=== PATIENT | female | born 1985 | race Two or more races ===

== ENCOUNTER 2018-11-01 20:15 | Emergency (ER) | payer MEDICAID ==
--- NOTE | 2018-11-01 21:11 | NUR ---
PT PRESENTS TO ED WITH C/O POSTERIOR HEADACHE AND DIZZINESS PRESENT X 2 WEEKS. EDMD SAHM AT BEDSIDE. PT IS [place] SPEAKING ONLY, [employer] MALE IMPERSONATOR [id number] UTILIZED FOR ASSESSMENT AND CLINICAL SCREEN. FAMILY AT BEDSIDE.
--- NOTE | 2018-11-01 21:27 | NUR ---
ct pending beta result.
--- NOTE | 2018-11-01 21:28 | NUR ---
THIS RN DISCUSSED PT SYMPTOMS INCLUDING DIZZINESS WITH EDMD SAHM, PER EDMD, PT DOES NOT NEED EKG.
[2018-11-01 21:33] LABS: BASOPHILS # (AUTO) 0.05 x10^3/uL (0-0.1); BASOPHILS % (AUTO) 1 % (0-1); EOSINOPHILS # (AUTO) 0.12 x10^3/uL (0-0.4); EOSINOPHILS % (AUTO) 2 % (1-7); LYMPHOCYTES # (AUTO) 2.67 x10^3/uL (1-3.4); LYMPHOCYTES % (AUTO) 33 % (22-44); MD NO; MEAN CORPUSCULAR HEMOGLOBIN 30.5 pg (27.0-34.8); MEAN CORPUSCULAR HGB CONC 34.6 g/dL (32.4-35.8); MEAN CORPUSCULAR VOLUME 88.1 fL (80-100); MEAN PLATELET VOLUME 8.6 fL (7.4-10.4); MONOCYTES # (AUTO) 0.51 x10^3/uL (0.2-0.8); MONOCYTES % (AUTO) 6 % (2-9); NEUTROPHILS # (AUTO) 4.69 x10^3/uL (1.8-6.8); NEUTROPHILS % (AUTO) 58 % (42-75); PLATELET COUNT 264 x10^3/uL (130-400); RED BLOOD COUNT 4.93 x10^6/uL (3.82-5.3); RED CELL DISTRIBUTION WIDTH 12.4 % (9.6-15.2)
[2018-11-01 21:44] LABS: ANION GAP 9 mmol/L (5-15); CALCIUM 9.7 mg/dL (8.5-10.1); CHLORIDE 107 mmol/L (98-107); CREATININE 0.61 mg/dL (0.55-1.02)
[2018-11-01] MEDS ORDERED: KETOROLAC 30 MG/1 ML IM ONE (22:00)
--- NOTE | 2018-11-01 22:00 | NUR ---
PT IN CT AT THIS TIME.
[2018-11-01] MEDS ORDERED: KETOROLAC 30 MG/1 ML ONE (22:08)
--- NOTE | 2018-11-01 22:13 | NUR ---
pt back from ct, remains a&o, resps even and unlabored. pt educated regarding toradol with media librarian, pt medicated per emar, tolerated well. awaiting ct results and dispo.
[2018-11-01 23:04] VITALS: BP 138/72
--- NOTE | 2018-11-01 23:05 | NUR ---
pt given dc instructions and script, educated using manager sourcing. pt educated regarding naproxen rx. pt a&o, resps even and unlabored. no s/sx adverse rxn to toradol prior to dc. pt has no complaint at dc. pt amb to dc desk with steady gait. nadn at dc.
== END 2018-11-01 23:08 | disposition home or self-care (01) ==
LOC: ED 22:59
DX: G44.219 Episodic tension-type headache, not intractable (principal)
CPT/HCPCS: 36415; 70450; 80048; 84703; 85025; 96372; 99284; J1885